=== PATIENT | female | born 1990 | race Two or more races ===

== ENCOUNTER 2024-08-19 20:56 | Emergency (ER) | payer MEDICAID ==
[~2024-08-19] VITALS: Ht 166.4 cm; Wt 74.4 kg
[2024-08-19 21:06] VITALS: O2SAT 99
[2024-08-19 21:07] VITALS: BP 114/77; PULSE 79; RESP 18; TEMP 36.7; O2SAT 98
[2024-08-19 22:46] LABS: BASOPHILS % 0.5 % (0.0-2.0); EOSINOPHILS % 0.3 % (0.0-5.0); HEMATOCRIT. 39.7 % (36.0-48.0); HEMOGLOBIN. 13.1 g/dL (12.0-16.0); MEAN CORPUSCULAR HEMOGLOBIN 30.8 pg (28.0-32.0); MEAN CORPUSCULAR VOLUME 93.1 fL (81.0-99.0); MEAN PLATELET VOLUME 9.1 fl (7.4-10.4); MONOCYTES % 2.6 % (2.0-8.0); NEUTROPHILS % 84.6 % (40.0-76.0); PLATELET 235 x1000/uL (130-400); RED BLOOD CELL COUNT 4.26 mill/uL (4.2-5.4); RED CELL DISTRIBUTION WIDTH 12.8 % (11.6-14.6); WHITE BLOOD COUNT 8.6 x1000/uL (4.5-11.0)
[2024-08-19 22:53] LABS: CHLORIDE 108 mEq/L (98-107); POTASSIUM 4.6 mEq/L (3.5-5.1); SODIUM 143 mEq/L (136-145)
[2024-08-19 22:54] LABS: CALCIUM 9.8 mg/dL (8.7-10.4); CARBON DIOXIDE 29 mEq/L (21-32)
[2024-08-19 22:59] LABS: CREATININE 0.8 mg/dL (0.6-1.0); GLUCOSE 96 mg/dL (70-105); UREA NITROGEN BLOOD 10 mg/dL (9-23)
[2024-08-19 23:01] LABS: ALANINE AMINOTRANSFERASE < 7 IU/L (10-49); ALBUMIN 4.7 g/dL (3.2-4.8); ASPARTATE AMINOTRANSFERASE 13 IU/L (<34)
[2024-08-19 23:02] LABS: BILIRUBIN TOTAL 0.5 mg/dL (0.1-1.0); PROTEIN TOTAL 7.3 g/dL (6.0-8.3)
[2024-08-20] MEDS: DIPHENHYDRAMINE 12.5MG/5ML UDC PO ONE
[2024-08-20] MEDS: ONDANSETRON HCL 4MG TABLET PO ONE (00:03)
[2024-08-20 00:11] VITALS: TEMP 98
[2024-08-20] MEDS: ACETAMINOPHEN 325MG TABLET PO ONE (00:11)
== END 2024-08-20 01:10 | disposition home or self-care (01) ==
LOC: ER 20:56
DX: G43.909 Migraine, unspecified, not intractable, without status migrainosus (principal); Z88.8 Allergy status to other drugs, medicaments and biological substances; Z98.890 Other specified postprocedural states
CPT/HCPCS: 99283; 80053; 81025; 83880; 83690; 85025; 36415; Q0162